=== PATIENT | female | born 1985 | race Caucasian/White ===

== ENCOUNTER → 2016-11-28 | Outpatient (CLI) | payer OTHER ==
--- NOTE | ~2016-11-28 | CR181 ---
[facility] A Service [facility] RADIOLOGY TEXT RESULTS PATIENT: EMMY NELSON LOCATION: [facility] : 85 UNIT #: [id number] AGE: [address]: OBDULIO GILBERT SEX: F ORDER DR: [id number] [facility] [address] [place], [place] [address] [id number] O MR#: [id number] #: [id number] NAME: EMMY NELSON : 1985 SEX: F STUDY DATE/TIME: 11/28/2016 13:36 UNIT: [facility] ROOM: STUDY DESCRIPTION: CR Lumbar Spine 2 or 3 Views Attending Physician: Andressa Baker Referring Physician: Andressa Baker Ordering Physician: Andressa Baker Primary Care Physician: Arcelia Juarez M.D. MEDICAL IMAGING REPORT This report is preliminary unless electronic signature is present EXAM Lumbar spine 11/28/2016 HISTORY 31-year-old female with low back pain for 2 years, worsening over the last 2 days. No specific injury. COMPARISON STUDIES None. FINDINGS 3 views of the lumbar spine demonstrate no acute fracture or subluxation. Vertebral body heights and alignment normally maintained. Mild degenerative disc narrowing at L3-L4. Facets are within normal limits. Sacrum and SI joints intact. IMPRESSION 1. No acute lumbar spine injury. 2. Mild degenerative disc space narrowing L3-L4. Dictated by... Loyd Neville M.D. THIS IS AN ELECTRONICALLY VERIFIED REPORT Loyd Neville M.D. at 11/29/2016 5:51 AM ANABELLE/krystin TD: 11/28/2016 19:15 JOB #: [id number] MEDICAL IMAGING REPORT [facility] A Service [facility] RADIOLOGY TEXT RESULTS PATIENT: EMMY NELSON LOCATION: [facility] : 85 UNIT #: [id number] AGE: [address]: OBDULIO GILBERT SEX: F ORDER DR: Page 1 of 1 COPY
== END | disposition home or self-care (01) ==
LOC: CRAD 13:22
DX: M54.5 Low back pain (principal); M48.06 Spinal stenosis, lumbar region
CPT/HCPCS: 72100